=== PATIENT | male | born 1995 | race Caucasian/White ===

== ENCOUNTER → 2019-11-03 17:37 | Outpatient (CLI) | payer OTHER, SELFPAY | PROVIDERS: PCP Family Medicine; Referring Provider Obstetrics & Gynecology; Visit Provider Obstetrics & Gynecology | DX: Z20.828 Contact with and (suspected) exposure to other viral communicable diseases (principal) | CPT/HCPCS: 87635; 94799; U0003 ==

== ENCOUNTER 2023-10-23 04:52 | Emergency (ER) | payer OTHER, SELFPAY ==
[2023-10-23 04:52] VITALS: BP 120/83; PULSE 75; RESP 16; TEMP 36.5; O2SAT 97; BMI 23.6
--- NOTE | 2023-10-23 05:08 | RAD_ITS ---
EXAM: XR CHEST, 1 VIEW CLINICAL INDICATION: chest pain chest pain TECHNIQUE: Frontal view of the chest. COMPARISON: No relevant prior studies available. FINDINGS: LUNGS AND PLEURAL SPACES: Unremarkable. No consolidation or edema. No pneumothorax. No effusion. HEART: Unremarkable. Cardiac silhouette not enlarged. MEDIASTINUM: Central airways and mediastinal contour are unremarkable. BONES/JOINTS: Unremarkable. No acute fracture. SOFT TISSUES: Unremarkable. RAD/Chest 1 View (Portable) IMPRESSION: No radiographic evidence of acute cardiopulmonary disease. Electronically Signed: Rashawn Rand MD at 5:57 EDT Reading Location ID and State: [facility] / [place] , Service support ,
--- NOTE | 2023-10-23 05:08 | EKG12_ITS ---
Test Reason : DYSRHYTHMIA Blood Pressure : / mmHG Vent. Rate : 077 BPM Atrial Rate : 077 BPM P-R Int : 158 ms QRS Dur : 092 ms QT Int : 358 ms P-R-T Axes : 055 074 044 degrees QTc Int : 405 ms Normal sinus rhythm Normal ECG Confirmed by TIM BARFIELD, WINSTON ([id number]), medical editor RHINA SHARP ([id number]) on 10/29/2023 1:34:38 PM Referred By: Confirmed By:RUPERT DUMONT MD
--- NOTE | 2023-10-23 05:09 | EX.ED.DYSGE1 ---
HPI History of Present Illness Chief Complaint: Syncope Detail of Chief Complaint: Chest pain and syncope Informant: patient Narrative Narrative: Patient presents the emergency department complaint chest discomfort. States he had a hard time sleeping last night because of this chest pressure. Denies any radiation of the pain from the center of his chest. Denies nausea or vomiting. Patient states that he had gotten up to get a drink of water and when he came back to bed members feeling lightheaded and then had a syncopal episode while in bed. states that he was out for about a minute. There is no seizure-like activity. Patient has history of syncope. Patient had a syncopal episode when he cut his finger and had to have the finger amputated. There is no family history of heart disease. Patient has no medical history. He denies recent travel or surgery and no history of PE or DVT. Patient denies recent illness. PFSH PFS Medical History no medical history Home Medications ?Medication ?Instructions ?Recorded ?Last Taken ?Type NK 10/23/23 Unknown History Allergy/AdvReac Type Severity Reaction Status Date / [facility] AdvReac Rash Verified 10/23/23 04:53 Social History Smoking Status: Never smoker ROS ROS ED Review of Systems ROS Unobtainable: other Constitutional Constitutional ED: Reports lethargy; Denies chills, fever(s), sweats or weight loss Eyes Eyes: Denies blurry vision, change in vision or diplopia ENT ENT ED: Denies rhinorrhea or sore throat Cardiovascular Cardiovascular: Reports chest pain; Denies orthopnea or racing heartbeat Respiratory/Chest Respiratory/Chest: Denies cough, dyspnea, dyspnea on exertion, orthopnea or sputum Gastrointestinal Gastrointestinal: Denies abdominal pain, diarrhea, nausea or vomiting Genitourinary Genitourinary ED: Denies dysuria, hematuria or urinary frequency Musculoskeletal Musculoskeletal: Denies arthralgias, back pain, myalgias or neck pain Integumentary Denies abscess, Abrasions or rash Neurologic Neurologic: Denies headache(s) or weakness Psychiatric Psychiatric: Denies anxiety, depression or suicidal thoughts Endocrine Endocrinology: Denies polydipsia, polyphagia or polyuria Hematologic/Lymphatic Hematologic/Lymphatic: Denies easy bleeding, easy bruising or lymphadenopathy Allergic/Immunologic Allergic/Immunologic ED: Denies mouth swelling, tongue swelling or urticaria EXAM Physical Exam Const Vital Signs: 10/23/23 04:52 10/23/23 04:52 10/23/23 05:52 Temperature 97.7 F L Temperature Source Oral Pulse Rate 75 Pulse Rate [Lying] 81 Pulse Rate [Sitting (for 1 minute prior to obtaining)] 94 Pulse Rate [Standing (for 1 minute prior to obtaining)] 90 Respiratory Rate 16 Respiratory Effort Normal Respiratory Pattern Normal Blood Pressure 120/83 H Blood Pressure [Lying] 109/68 Blood Pressure [Sitting (for 1 minute prior to obtaining)] 115/80 Blood Pressure [Standing (for 1 minute prior to obtaining)] 118/71 Blood Pressure Mean 95 Blood Pressure Mean [Lying] 81 Blood Pressure Mean [Sitting (for 1 minute prior to obtaining)] 91 Blood Pressure Mean [Standing (for 1 minute prior to obtaining)] 86 Pulse Ox 97 Oxygen Delivery Method 10/23/23 05:52 Temperature Temperature Source Pulse Rate 90 Pulse Rate [Lying] Pulse Rate [Sitting (for 1 minute prior to obtaining)] Pulse Rate [Standing (for 1 minute prior to obtaining)] Respiratory Rate 21 H Respiratory Effort Respiratory Pattern Blood Pressure 118/71 Blood Pressure [Lying] Blood Pressure [Sitting (for 1 minute prior to obtaining)] Blood Pressure [Standing (for 1 minute prior to obtaining)] Blood Pressure Mean 86 Blood Pressure Mean [Lying] Blood Pressure Mean [Sitting (for 1 minute prior to obtaining)] Blood Pressure Mean [Standing (for 1 minute prior to obtaining)] Pulse Ox 99 Oxygen Delivery Method Room Air Positive well nourished and well developed General Appearance ED: well developed and NAD HEENT Reports TM's clear and moist mucous membranes normocephalic and atraumatic; Negative for trauma or tenderness Tympanic Membrane ED: Yes TM's clear Eyes PERRL and EOMs intact bilaterally General Eye ED: Negative for pale conjunctiva or scleral icterus Neck no lymphadenopathy, supple and no JVD General: Negative for tenderness Chest Wall inspection of chest normal and palpation of chest normal Chest: Negative for tenderness Resp normal respiratory effort and clear to auscultation bilaterally Effort and Inspection: Negative for respiratory distress or pain with movement Auscultation: Negative for rhonchi, wheezes or diminished lung sounds Cardio regular rate, regular rhythm, S1 normal heart sound, S2 normal heart sound and no murmurs Peripheral Pulses: pulses 2+ throughout GI normal to inspection, nondistended, normoactive bowel sounds, soft to palpation, non-tender, non-distended and no masses Back/Spine no CVA tenderness and no thoracic nor lumbar tenderness Extremity normal to inspection General Extremety ED: Negative for edema General Extremity: Negative for edema Neuro oriented x3, CN's II-XII intact bilaterally, no sensory deficits noted and gait normal Sensorium / Orientation: awake, alert, oriented to person, oriented to place and oriented to time Motor Exam: strength 5/5 throughout and strength abnormal Psych mental status grossly normal Skin no rashes or lesions noted and no wounds MDM MDM MDM Narrative Medical decision making narrative: Patient presents with chest discomfort and syncopal episode. No real medical history. History of syncope in the past that sounds vasovagal. No family history of heart disease. IV line established. EKG obtained arrival showed a sinus rhythm with a ventricular rate of 77 bpm with no acute ST segment changes. No evidence of pericarditis or evidence of WPW. CBC with differential obtained showed white count 7.8 with hemoglobin 13.5 and platelet count of 147. Chemistries unremarkable. BUN was 14 and creatinine 0.94. Troponin was normal at 7. D-dimer was normal at 0.42. Chest x-ray obtained was unremarkable. Patient had orthostatic vital signs performed that were negative. On repeat examination at 6:05 AM he is asymptomatic and states he feels good. This point will discharge to home. Etiology of chest pain unclear. He had a syncopal episode that I suspect is likely vasovagal. Will refer to primary care physician on-call for no doc. Lab Data Attestation: I reviewed the patient's lab results. Labs: Laboratory Results - last 24 hr 10/23/23 05:12 WBC 7.8 RBC 4.89 Hgb 13.5 Hct 41.5 MCV 84.9 MCH 27.6 MCHC 32.5 RDW Std Deviation 37.1 RDW Coeff of [place] 12.1 Plt Count 147 L MPV 8.9 Immature Gran % (Auto) 0.500 Neut % (Auto) 61.5 Lymph % (Auto) 28.3 [place] % (Auto) 7.9 Eos % (Auto) 1.3 Baso % (Auto) 0.5 Absolute Neuts (auto) 4.8 Absolute Lymphs (auto) 2.20 Nucleated RBC % 0 D-Dimer Quant (PE/DVT) 0.42 Sodium 139 Potassium 3.3 L Chloride 104 Carbon Dioxide 28.0 Anion Gap 7 BUN 14 Creatinine 0.94 Estim Creat Clear Calc 110.36 Est GFR (MDRD) Af Amer 124 Est GFR (MDRD) Non-Af 102 BUN/Creatinine Ratio 15.0 Glucose 118 H Calcium 9.0 Troponin I High Sens 7 Radiography Diagnostic Testing: Clinical Impression(s) from Imaging Studies Chest X-Ray 10/23/23 05:08 IMPRESSION: No radiographic evidence of acute cardiopulmonary disease. Electronically Signed: Rashawn Rand MD at 5:57 EDT , 1 view chest x-ray obtained interpreted by myself as no evidence of infiltrate or pneumothorax or acute disease process. Radiology in agreement. EKG Initial EKG: Attestation: I personally reviewed and interpreted this EKG as follows: Comments: Sinus rhythm with a ventricular rate of 77 bpm with no acute ST segment changes Discharge Plan Triage Chief Complaint: Syncope ED Provider: Brant Graff Dx/Rx/DC Orders Clinical Impression: Chest pain, Syncope Instructions: ED Chest Pain, Uncertain Cause, ED Fainting, Vagal Reaction Prescriptions: No Action NK Primary Care Provider: Care Physician,No Primary Referrals: Raúl Angela MD [Med Staff - Active Staff] - 5-7 Days Print Language: [place] Disposition Disposition: Home, Self Care
[2023-10-23 05:19] LABS: Absolute Neutrophil Count 4.8 X10^3/uL (2.0-7.7); Basophil# 0.04 X10^3/uL; Basophil% 0.5 % (0-1); Eosinophils% 1.3 % (0-5); Hematocrit 41.5 % (40-54); Hemoglobin 13.5 g/dL (13.0-16.5); Lymphocyte % 28.3 % (19-41); Mean Corp Hgb Conc 32.5 g/dL (32-36); Mean Corpuscular Hgb 27.6 pg (27.0-32.0); Mean Corpuscular Volume 84.9 fL (80-94); Mean Platelet Vol. 8.9 fl (6.2-12.0); Monocyte# 0.61 X10^3/uL; Monocyte% 7.9 % (0-10); NRBC Flagged by Analyzer 0 % (0-5); Neutrophil # 4.78 X10^3/uL (2.7-7.7); Neutrophil % 61.5 % (47-70); POSITIVE MORPHOLOGY YES; Platelet Count 147 K/mm3 (150-450); RBC Distribution Width CV 12.1 % (11.6-14.6); RBC Distribution Width SD 37.1 fl (35.1-43.9); Red Blood Count 4.89 M/mm3 (4.6-6.2); White Blood Count 7.8 K/mm3 (4.4-11.0)
[2023-10-23 05:28] LABS: Differential Indicated SCAN CRITERIA MET
[2023-10-23] MEDS: 0.9% Normal Saline (1000mL) 1,000 ML 150 ML IV (05:30)
[2023-10-23 05:39] LABS: D-Dimer Quantitative (DVT/PE) 0.42 FEU/ug/m (0.27-0.49)
[2023-10-23 05:47] LABS: Anion Gap 7 (5-15); BUN 14 mg/dL (7-18); Chloride 104 mmol/L (98-107); Creatinine, Serum 0.94 mg/dL (0.70-1.30); EST Glomerular Filtration Rate 102 mL/min (>60); Est Glom Filt Rate - Afr Amer 124 mL/min (>60); Estimated Creatinine Clearance 110.36 ml/min; Glucose 118 mg/dL (74-106); Potassium 3.3 mmol/L (3.5-5.1); Sodium Level 139 mmol/L (136-145); Troponin-I HS 7 pg/mL (3.0-78.0)
[2023-10-23 05:52] VITALS: BP 109/68; BP 115/80; BP 118/71; PULSE 81; PULSE 90; PULSE 94; RESP 21; O2SAT 99
[2023-10-23 06:00] VITALS: BP 109/82; PULSE 84; RESP 16; TEMP 36.6; O2SAT 99
[2023-10-23 07:09] LABS: Differential Comment SCANNED
== END 2023-10-23 06:18 | disposition home or self-care (01) ==
PROVIDERS: Emergency Provider Emergency Medicine; Visit Provider Emergency Medicine
DX: R07.89 Other chest pain (principal); R55 Syncope and collapse
CPT/HCPCS: 71045; 80048; 84484; 85025; 85379; 93005; 96360; 99285; J7030; A4216